=== PATIENT | female | born 2000 | race Caucasian/White ===

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

== ENCOUNTER 2025-06-12 01:35 | Emergency (ER) | payer BC, OTHER ==
--- NOTE | 2025-06-12 02:02 | ED ---
Extremity Problem HPI - General Source: patient, RN notes reviewed Mode of arrival: wheelchair Limitations: no limitations - History of Present Illness MD Complaint: extremity pain <Arin Wright - Last Filed: 06/12/25 05:05> <Nicolás Abebe - Last Filed: 06/12/25 09:58> - General Chief complaint: Extremity Problem,Nontraumatic Stated complaint: leg pain Time Seen by Provider: 06/12/25 01:45 - History of Present Illness Initial comments: This is a 25-year-old female who presents to the emergency department for right leg pain. Patient states that for the last 1 to 2 days she has had pain that seems to start in her right lower back and hip area and go down into the thigh. Pain does not travel past the knee into the calf. It is more so on the outside and top of the thigh. States that it feels achy and heavy. Reports a history of blood clots in the left leg. When she was in 2019 she developed pain and swelling to the left lower extremity and was diagnosed with a DVT. 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 Over the last couple of years she has had 5 stents put in the left leg. She is on Eliquis daily. She is concerned that she could be developing clots in the right leg as well. Denies any history of clots or problems in that leg. Denies any chest pain or shortness of breath. (Arin Wright) - Related Data Home Medications Medication Instructions Recorded Confirmed valACYclovir HCL [Valacyclovir] 1,000 mg PO DAILY 01/10/19 08/05/19 Enoxaparin [Lovenox] 100 mg SQ BID 08/05/19 08/05/19 Allergies Allergy/AdvReac Type Severity Reaction Status Date / Time No Known Allergies Allergy Verified 08/05/19 06:31 Review of Systems ROS Other: All systems not noted in ROS Statement are negative. <Arin Wright - Last Filed: 06/12/25 05:05> ROS Other: All systems not noted in ROS Statement are negative. <Nicolás Abebe - Last Filed: 06/12/25 09:58> ROS Statement: Those systems with pertinent positive or pertinent negative responses have been documented in the HPI. Past Medical History Past Medical History: Blood Disorder, Deep Vein Thrombosis (DVT) Additional Past Medical History / Comment(s): herpes simplex infection, extensive L DVT comanaged with [facility] History of Any Multi-Drug Resistant Organisms: None Reported Past Surgical History: No Surgical Hx Reported Additional Past Surgical History / Comment(s): left leg stent placements ( multiple) Past Anesthesia/Blood Transfusion Reactions: No Reported Reaction Past Psychological History: No Psychological Hx Reported Smoking Status: Never smoker Past Alcohol Use History: Occasional Past Drug Use History: None Reported - Past Family History family Additional Family Medical History / Comment(s): Denies family history of blood clots. <Arin Wright - Last Filed: 06/12/25 05:05> General Exam Limitations: no limitations General appearance: alert, in no apparent distress Head exam: Present: atraumatic, normocephalic, normal inspection Respiratory exam: Present: normal lung sounds bilaterally. Absent: respiratory distress, wheezes, rales, rhonchi, stridor Cardiovascular Exam: Present: regular rate, normal rhythm Extremities exam: Present: other (Tenderness to palpation over the right thigh. No swelling or erythema. No calf tenderness. 2+ DP and PT pulses.) Neurological exam: Present: alert, oriented X3, CN II-XII intact Psychiatric exam: Present: normal affect, normal mood Skin exam: Present: warm, dry, intact, normal color. Absent: rash <Arin Wright - Last Filed: 06/12/25 05:05> Course Vital Signs 06/12/25 06/12/25 06/12/25 01:38 02:34 06:21 Temperature 98.2 F Pulse Rate 85 81 85 Respiratory 16 19 17 Rate Blood Pressure 112/56 102/61 98/62 O2 Sat by Pulse 98 98 97 Oximetry Medical Decision Making - Lab Data Result diagrams: 06/12/25 02:16 06/12/25 02:16 - Radiology Data Radiology results: report reviewed, image reviewed <Arin Wright - Last Filed: 06/12/25 05:05> - Lab Data Result diagrams: 06/12/25 02:16 06/12/25 02:16 <Nicolás Abebe - Last Filed: 06/12/25 09:58> - Medical Decision Making This is a 25-year-old female who presents to the emergency department for right leg pain. Was pt. sent in by a medical professional or institution? @ -No Did you speak to anyone other than the patient for history? @ -None Did you review nursing and triage notes? @ -Yes, and I agree, it is accurate with regards to the patient's symptoms. Were old charts reviewed? @ -No Differential Diagnosis? @ -Differential Musculoskeletal Muscular strain, contusion, ligament sprain, fracture, arthritis, septic arthritis, bursitis, cellulitis, muscle spasm, nerve compression, DVT, arterial occlusion, herpes zoster, electrolyte abnormality, tumor.... This is not meant to be in all inclusive list EKG interpreted by me (3pts min.)? @ -Not obtained X-rays interpreted by me (1pt min.)? @ -X-ray of the lumbar spine obtained. My interpretation identifies no acute fractures. CT interpreted by me (1pt min.)? @ -Not obtained U/S interpreted by me (1pt. min.)? @ -Pending What testing was considered but not performed? (CT, X-rays, U/S, labs)? Why? @ -None What meds were considered but not given? Why? @ -None Did you discuss the management of the patient with other professionals? @ -No Did you reconcile home meds? @ -No Was smoking cessation discussed for >3mins.? @ -No Was critical care preformed (if so, how long)? @ -No Were there social determinants of health that impacted care today? How? (Homelessness, low income, unemployed, alcoholism, drug addiction, transporta tion, low edu. Level, literacy, decrease access to med. care, skilled nursing, rehab)? @ -No Was there de-escalation of care discussed even if they declined? (Discuss DNR or withdrawal of care, Hospice)? @ -No What co-morbidities impacted this encounter? (DM, HTN, Smoking, COPD, CAD, Cancer, CVA, Hep., AIDS, mental health diagnosis, sleep apnea, morbid obesity)? @ -May Thurner syndrome Was patient admitted / discharged? @ -The patient presented to the emergency department overnight. Advised that ultrasound would not be available for several hours until 7 AM. I did offer the option of discharge home and returning in the morning, however patient requested to wait. In the meantime we did obtain laboratory studies including a D-dimer to see if a DVT could be ruled out. X-ray of the lumbar spine obtained as well due to the possibility of other syndromes like sciatica contributing to her current discomfort. Lab work demonstrates a D-dimer of 4.32. However, this is not necessarily unexpected given her prior history. Duplex ultrasound of the right lower extremity ordered. Case signed out to ED attending at shift completion pending ultrasound results and disposition. Undiagnosed new problem with uncertain prognosis? @ -None Drug Therapy requiring intensive monitoring for toxicity (Heparin, Nitro, Insulin, Cardizem)? @ -None Were any procedures done? @ -None (Arin Wright) 25-year-old female signed out to me pending results of ultrasound of the right lower extremity. Patient presents for right lower extremity pain and heaviness. Workup so far included laboratory studies all of which were within acceptable limits except for elevated D-dimer. Was pending venous duplex ultrasound of the right lower extremity. Lumbar spine x-rays interpreted by myself reveals no evidence of acute process or injury. DVT ultrasound is interpreted myself negative for DVT. I did discuss results with the patient. Patient has 2+ pulses in the right lower extremity and it is warm. Neurovascular intact throughout. She is having no shortness of breath or chest heaviness. No concern for PE at this time. Patient does have a history of left lower extremity stents and there was a concern for possible DVT in the right lower extremity which is not there. Patient feels comfortable being discharged at this time as am I. She was given a dose of her normal Eliquis and she states she is due to refill her prescription today and is going to go pick it up. She can resume this medication at home tonight. She was in agreement this plan. Strict return precautions discussed. Recommended she follow-up with her vascular surgeon as well as PCP. I instructed the patient to follow up with their PCP in the next 1-3 days. I explained that the patient should return to the emergency department if they experience any worsening symptoms. Strict return precautions were discussed with the patient. The patient expressed understanding of these instructions. I answered all questions that the patient had. The patient was discharged home in good condition with their prescriptions and follow up information. Diagnosis/symptom? @ -Right lower extremity pain Acute, or Chronic, or Acute on Chronic? @ -Acute Uncomplicated (without systemic symptoms) or Complicated (systemic symptoms)? @ -Uncomplicated Side effects of treatment? @ -None Exacerbation, Progression, or Severe Exacerbation] @ -No Poses a threat to life or bodily function? @ -Unlikely at this time (Nicolás Abebe) - Lab Data Lab Results 06/12/25 06/12/25 06/12/25 Range/Units 02:16 02:16 02:16 WBC 8.75 (4.50-10.00) 10*3/uL RBC 4.40 (4.10-5.20) 10*6/uL Hgb 14.0 (12.0-15.0) g/dL Hct 41.2 (37.2-46.3) % MCV 93.6 (80.0-97.0) fL MCH 31.8 (27.0-32.0) pg MCHC 34.0 (32.0-37.0) g/dL Plt Count 249 (140-440) 10*3/uL MPV 10.1 (9.5-12.2) fL Immature Gran % (Auto) 0.5 % Neutrophils % 57.1 % Lymphocytes % 29.3 % Monocytes % 9.9 % Eosinophils % 2.7 % Basophils % 0.5 % Immature Gran # 0.04 (0.00-0.04) 10*3/uL Neutrophils # 5.00 (1.80-7.70) 10*3/uL Lymphocytes # 2.56 (0.90-5.00) 10*3/uL Monocytes # 0.87 (0.20-1.00) 10*3/uL Eosinophils # 0.24 (0.04-0.35) 10*3/uL Basophils # 0.04 (0.00-0.10) 10*3/uL PT (10.0-12.5) sec INR (<1.2) APTT (22.0-30.0) sec D-Dimer (<0.60) mg/L FEU Sodium 137 (137-145) mmol/L Potassium 4.6 (3.5-5.1) mmol/L Chloride 103 (98-107) mmol/L Carbon Dioxide 25 (22-30) mmol/L Anion Gap 9 mmol/L BUN 11 (7-17) mg/dL Creatinine 0.68 (0.52-1.04) mg/dL Est GFR (CKD-EPI)AfAm >90 (>60 ml/min/1.73 sqM) Est GFR (CKD-EPI)NonAf >90 (>60 ml/min/1.73 sqM) Glucose 104 H (74-99) mg/dL Calcium 10.0 (8.4-10.2) mg/dL Magnesium 2.0 (1.6-2.3) mg/dL Total Bilirubin 0.7 (0.2-1.3) mg/dL AST 27 (14-36) U/L ALT 20 (4-34) U/L Alkaline Phosphatase 44 (38-126) U/L Total Protein 7.4 (6.3-8.2) g/dL Albumin 4.2 (3.5-5.0) g/dL HCG, Qual Not Detected 06/12/25 Range/Units 03:45 WBC (4.50-10.00) 10*3/uL RBC (4.10-5.20) 10*6/uL Hgb (12.0-15.0) g/dL Hct (37.2-46.3) % MCV (80.0-97.0) fL MCH (27.0-32.0) pg MCHC (32.0-37.0) g/dL Plt Count (140-440) 10*3/uL MPV (9.5-12.2) fL Immature Gran % (Auto) % Neutrophils % % Lymphocytes % % Monocytes % % Eosinophils % % Basophils % % Immature Gran # (0.00-0.04) 10*3/uL Neutrophils # (1.80-7.70) 10*3/uL Lymphocytes # (0.90-5.00) 10*3/uL Monocytes # (0.20-1.00) 10*3/uL Eosinophils # (0.04-0.35) 10*3/uL Basophils # (0.00-0.10) 10*3/uL PT 10.8 (10.0-12.5) sec INR 1.0 (<1.2) APTT 22.6 (22.0-30.0) sec D-Dimer 4.32 H (<0.60) mg/L FEU Sodium (137-145) mmol/L Potassium (3.5-5.1) mmol/L Chloride (98-107) mmol/L Carbon Dioxide (22-30) mmol/L Anion Gap mmol/L BUN (7-17) mg/dL Creatinine (0.52-1.04) mg/dL Est GFR (CKD-EPI)AfAm (>60 ml/min/1.73 sqM) Est GFR (CKD-EPI)NonAf (>60 ml/min/1.73 sqM) Glucose (74-99) mg/dL Calcium (8.4-10.2) mg/dL Magnesium (1.6-2.3) mg/dL Total Bilirubin (0.2-1.3) mg/dL AST (14-36) U/L ALT (4-34) U/L Alkaline Phosphatase (38-126) U/L Total Protein (6.3-8.2) g/dL Albumin (3.5-5.0) g/dL HCG, Qual Disposition <Arin Wright - Last Filed: 06/12/25 05:05> Is patient prescribed a controlled substance at d/c from ED?: No Time of Disposition: 09:51 <Nicolás Abebe - Last Filed: 06/12/25 09:58> Clinical Impression: Right leg pain Disposition: HOME SELF-CARE Condition: Good Additional Instructions: Please fill your Eliquis prescription. Return to the ER if any worsening symptoms. Follow-up with your vascular surgeon and PCP in the next 1 to 3 days. Return to the ER for any worsening symptoms. Referrals: Nonstaff,Physician [Primary Care Provider] - 1-2 days Forms: Area PCPs
[2025-06-12] MEDS: DEXAMETHASONE SOD PHOSPHATE 10 MG/ML 1 ML VIAL IVP STA (02:23)
[2025-06-12] MEDS: KETOROLAC 15 MG/ML 1 ML VIAL IVP STA (02:26)
[2025-06-12] MEDS: ORPHENADRINE 30 MG/ML 2 ML VIAL IVP STA (02:30)
[2025-06-12 02:43] LABS: Basophils # (A) 0.04 10*3/uL (0.00-0.10); Basophils % (A) 0.5 %; Eosinophils # (A) 0.24 10*3/uL (0.04-0.35); Eosinophils % (A) 2.7 %; HCT 41.2 % (37.2-46.3); HGB 14.0 g/dL (12.0-15.0); Lymphocytes # (A) 2.56 10*3/uL (0.90-5.00); Lymphocytes % (A) 29.3 %; MCH 31.8 pg (27.0-32.0); MCHC 34.0 g/dL (32.0-37.0); MCV 93.6 fL (80.0-97.0); Monocytes # (A) 0.87 10*3/uL (0.20-1.00); Monocytes % (A) 9.9 %; Neutrophils # (A) 5.00 10*3/uL (1.80-7.70); Neutrophils % (A) 57.1 %; Platelet Count 249 10*3/uL (140-440); RBC 4.40 10*6/uL (4.10-5.20); RDW 12.6 % (11.5-14.5); WBC 8.75 10*3/uL (4.50-10.00)
[2025-06-12 03:07] LABS: ALT 20 U/L (4-34); African American GFR (CKD) >90 (>60 ml/min/1.73 sqM); Albumin 4.2 g/dL (3.5-5.0); Anion Gap 9 mmol/L; Blood Urea Nitrogen 11 mg/dL (7-17); Calcium 10.0 mg/dL (8.4-10.2); Carbon Dioxide 25 mmol/L (22-30); Chloride 103 mmol/L (98-107); Glucose 104 mg/dL (74-99); Non-African American GFR(CKD) >90 (>60 ml/min/1.73 sqM); Sodium 137 mmol/L (137-145); Total Protein 7.4 g/dL (6.3-8.2)
[2025-06-12 03:22] LABS: AST 27 U/L (14-36); Alkaline Phosphatase 44 U/L (38-126); Magnesium 2.0 mg/dL (1.6-2.3); Potassium 4.6 mmol/L (3.5-5.1)
[2025-06-12 04:09] LABS: INR 1.0 (<1.2)
[2025-06-12 04:10] LABS: Partial Thromboplastin Time 22.6 sec (22.0-30.0); Prothrombin Time 10.8 sec (10.0-12.5)
--- NOTE | 2025-06-12 04:33 | XR ---
EXAM: XR Lumbosacral Spine, 2 or 3 Views CLINICAL HISTORY: ITS.REASON XR Reason: Low back pain TECHNIQUE: Frontal and lateral views of the lumbar spine and sacrum. COMPARISON: No relevant prior studies available. FINDINGS: Vertebrae: There is a mild generalized curved to the left and normal lumbar lordosis. No acute fracture. Normal alignment. Sacrum/coccyx: Unremarkable as visualized. No acute fracture. Disc spaces: No acute findings. No significant narrowing. Soft tissues: Unremarkable. IMPRESSION: No evidence of acute lumbar spine pathology. If there is continued clinical concern, a CT scan may be of benefit for further evaluation.
--- NOTE | 2025-06-12 08:08 | US ---
EXAMINATION TYPE: US venous doppler duplex LE RT DATE OF EXAM: 06/12/2025 7:47 AM COMPARISON: 2018 CLINICAL INDICATION: Female, 25 years old with history of Right leg pain, hx of DVT; Right leg pain. Hx of DVT. Patient is on eliquis. TECHNIQUE: The lower extremity deep venous system is examined utilizing real time linear array sonog simón with graded compression, doppler sonography and color-flow sonography. Grayscale, color doppler , spectral doppler imaging performed of the deep veins of the lower extremities FINDINGS: SIDE PERFORMED: Right VESSELS IMAGED: Common Femoral Vein Deep Femoral Vein Greater Saphenous Vein * Femoral Vein Popliteal Vein Small Saphenous Vein * Proximal Calf Veins (* superficial vessels) Right Leg: No evidence of DVT. Appropriate venous spectral waveforms Patient states she has stent in the LEFT groin in her vein due to May-Thurner Syndrome - visualized a s hyperechoic area along vessel wall. IMPRESSION: No evidence for deep vein thrombosis. [facility], , 06/12/2025 8:06 AM
[2025-06-12] MEDS: APIXABAN 5 MG TAB PO STA (09:55)
[2025-06-12 09:58] VITALS: BP 107/69; PULSE 83; RESP 18; TEMP 98.1
== END 2025-06-12 10:00 | disposition home or self-care (01) ==
LOC: EC 01:35
DX: M79.604 Pain in right leg (principal); Z86.718 Personal history of other venous thrombosis and embolism
CPT/HCPCS: 36415; 85379; 80053; 83735; 85025; 85610; 85730; 84703; 72100; 93971; 99284; 96374; 96375 ×2; J1100; J2360; J1885

== ENCOUNTER 2025-06-15 15:51 | Inpatient (IN) | payer OTHER ==
[2025-06-15] MEDS: HYDROmorphone 1 MG/ML 1 ML SYRINGE IVP STA ×2 (16:41→18:06)
--- NOTE | 2025-06-15 16:42 | ED ---
General Adult HPI - General Chief complaint: Extremity Problem,Nontraumatic Stated complaint: Right leg pain Time Seen by Provider: 06/15/25 15:53 Source: patient Mode of arrival: wheelchair Limitations: no limitations - History of Present Illness Initial comments: Dictation was produced using [employer] dictation software. please excuse any grammatical, word or spelling errors. Chief Complaint: 25-year-old female with acute on chronic leg pain History of Present Illness: Patient 25-year-old female she has a past medical history of left lower extremity DVT status post stents. She is on anticoagulation medication presents emergency department for approximately a week and a half of right lower extremity pain. She was seen here in our facility along with at [facility] [place] the same complaint. States that DVT to the right lower extremity had been ruled out. She has been diagnosed with May-Thurner syndrome at [facility]. States that her whole leg hurts.. She states that her pain is worse whenever she tries to stand. The ROS documented in this emergency department record has been reviewed and confirmed by me. Those systems with pertinent positive or negative responses have been documented in the HPI. All other systems are other negative and/or noncontributory. - Related Data Home Medications Medication Instructions Recorded Confirmed valACYclovir HCL [Valacyclovir] 1,000 mg PO DAILY 01/10/19 08/05/19 Enoxaparin [Lovenox] 100 mg SQ BID 08/05/19 08/05/19 Allergies Allergy/AdvReac Type Severity Reaction Status Date / Time No Known Allergies Allergy Verified 08/05/19 06:31 Review of Systems ROS Statement: Those systems with pertinent positive or pertinent negative responses have been documented in the HPI. ROS Other: All systems not noted in ROS Statement are negative. Past Medical History Past Medical History: Blood Disorder, Deep Vein Thrombosis (DVT) Additional Past Medical History / Comment(s): herpes simplex infection, extensive L DVT comanaged with [facility] History of Any Multi-Drug Resistant Organisms: None Reported Past Surgical History: No Surgical Hx Reported Additional Past Surgical History / Comment(s): left leg stent placements ( multiple) Past Anesthesia/Blood Transfusion Reactions: No Reported Reaction Past Psychological History: No Psychological Hx Reported Smoking Status: Never smoker Past Alcohol Use History: Occasional Past Drug Use History: None Reported - Past Family History family Additional Family Medical History / Comment(s): Denies family history of blood clots. General Exam - General Exam Comments Initial Comments: PHYSICAL EXAM: General Impression: Alert and oriented x3, acute distress secondary to pain HEENT: Normocephalic atraumatic, extra-ocular movements intact, pupils equal and reactive to light bilaterally, mucous membranes moist. Cardiovascular: Heart regular rate and rhythm Chest: Able to complete full sentences, no retractions, no tachypnea Abdomen: abdomen soft, non-tender, non-distended, no organomegaly Musculoskeletal: Pulses present and equal in all extremities, no peripheral edema Motor: no focal deficits noted Neurological: CN II-XII grossly intact, no focal motor or sensory deficits noted Skin: Intact with no visualized rashes Psych: Normal affect and mood Right lower extremity: Increased bulk to the right leg compared to the left, diffuse palpatory tenderness circumferentially from the groin all the way down to the foot. Strong DP and PT pulse. No skin changes. Soft compartments Limitations: no limitations Course Vital Signs 06/15/25 06/15/25 15:58 16:39 Temperature 99.3 F Pulse Rate 108 H 103 H Respiratory 20 16 Rate Blood Pressure 132/66 100/73 O2 Sat by Pulse 94 L 97 Oximetry Medical Decision Making - Medical Decision Making Was pt. sent in by a medical professional or institution (CASEY Rooney, RADIOISOTOPE TECHNICIAN, urgent care, hospital, or usp...) When possible be specific @ -No Did you speak to anyone other than the patient for history (EMS, parent, family, police, friend...)? What history was obtained from this source @ -No Did you review nursing and triage notes (agree or disagree)? Why? @ -I reviewed and agree with nursing and triage notes Were old charts reviewed (outside hosp., previous admission, EMS record, old EKG, old radiological studies, urgent care reports/EKG's, usp records)? Report findings @ -No old charts were reviewed Differential Diagnosis (chest pain, altered mental status, abdominal pain women, abdominal pain men, vaginal bleeding, musculoskeletal, weakness, fever, dyspnea, syncope, headache, dizziness, GI bleed, back pain, seizure, CVA, palpatations, mental health)? @ -Compartment syndrome, DVT, ischemic limb EKG interpreted by me (3pts min.). @ -None done X-rays interpreted by me (1pt min.). @ -None done CT interpreted by me (1pt min.). @ -None done U/S interpreted by me (1pt. min.). @ -None done What testing was considered but not performed or refused? (CT, X-rays, U/S, labs)? Why? @ -None What meds were considered but not given or refused? Why? @ -None Was smoking cessation discussed for >3mins.? @ -No Were there social determinants of health that impacted care today? How? (Homelessness, low income, unemployed, alcoholism, drug addiction, transportation, low edu. Level, literacy, decrease access to med. care, nursing home, rehab)? @ -No Was there de-escalation of care discussed even if they declined (Discuss DNR or withdrawal of care, Hospice)? DNR status @ -No What co-morbidities impacted this encounter? (DM, HTN, Smoking, COPD, CAD, Cancer, CVA, ARF, Chemo, Hep., AIDS, mental health diagnosis, sleep apnea, morbid obesity)? @ -None Was patient admitted / discharged? Hospital course, mention meds given and route, prescriptions, significant lab abnormalities, going to OR and other pertinent info. @ -25-year-old female history of May Trammell syndrome and left lower extremity DVT since to the ER with severe right lower extremity pain. Vital signs stable. Patient no distress. Patient has good pulses soft compartments. Labs unremarkable. Patient in significant distress despite analgesic administration. Will be admitted for intractable pain consultation to vascular and Ortho Did you discuss the management of the patient with other professionals (faraz bell i.e. , PA, RADIOISOTOPE TECHNICIAN, lab, RT, psych nurse, social sciences department chair, atm servicer, teacher, ship's officer, case making machine operator)? Give summary @ -No Was critical care preformed (if so, how long)? @ -No Undiagnosed new problem with uncertain prognosis? @ -No Drug Therapy requiring intensive monitoring for toxicity (Heparin, Nitro, Insulin, Cardizem)? @ -No Were any procedures done? @ -No Diagnosis/symptom? Acute, or Chronic, or Acute on Chronic? Uncomplicated (without systemic symptoms) or Complicated (systemic symptoms)? @ -Intractable leg pain Side effects of treatment? @ -No Exacerbation, Progression, or Severe Exacerbation? @ -No Poses a threat to life or bodily function? How? (Chest pain, [place], [place], pneumonia, PE, COPD, DKA, ARF, appy, cholecystitis, CVA, Diverticulitis, Homicidal, Suicidal, threat to staff... and all critical care pts) @ -yes - Lab Data Result diagrams: 06/15/25 16:37 06/15/25 16:37 Lab Results 06/15/25 06/15/25 06/15/25 Range/Units 16:37 16:37 17:16 WBC 10.15 H (4.50-10.00) 10*3/uL RBC 4.04 L (4.10-5.20) 10*6/uL Hgb 13.1 (12.0-15.0) g/dL Hct 38.1 (37.2-46.3) % MCV 94.3 (80.0-97.0) fL MCH 32.4 H (27.0-32.0) pg MCHC 34.4 (32.0-37.0) g/dL Plt Count 285 (140-440) 10*3/uL MPV 9.3 L (9.5-12.2) fL Immature Gran % (Auto) 0.5 % Neutrophils % 70.0 % Lymphocytes % 19.2 % Monocytes % 8.1 % Eosinophils % 1.8 % Basophils % 0.4 % Immature Gran # 0.05 H (0.00-0.04) 10*3/uL Neutrophils # 7.11 (1.80-7.70) 10*3/uL Lymphocytes # 1.95 (0.90-5.00) 10*3/uL Monocytes # 0.82 (0.20-1.00) 10*3/uL Eosinophils # 0.18 (0.04-0.35) 10*3/uL Basophils # 0.04 (0.00-0.10) 10*3/uL Sodium 137 (137-145) mmol/L Potassium 3.9 (3.5-5.1) mmol/L Chloride 103 (98-107) mmol/L Carbon Dioxide 23 (22-30) mmol/L Anion Gap 11 mmol/L BUN 11 (7-17) mg/dL Creatinine 0.57 (0.52-1.04) mg/dL Est GFR (CKD-EPI)AfAm >90 (>60 ml/min/1.73 sqM) Est GFR (CKD-EPI)NonAf >90 (>60 ml/min/1.73 sqM) Glucose 124 H (74-99) mg/dL Plasma Lactic Acid Umesh 0.6 L (0.7-2.0) mmol/L Calcium 9.5 (8.4-10.2) mg/dL HCG, Quant <2.4 mIU/mL Disposition Clinical Impression: Intractable pain Disposition: ADMITTED IP TO THIS HOSP Condition: Fair Referrals: None,Stated [Primary Care Provider] - 1-2 days Decision Time: 18:08
[2025-06-15 16:44] LABS: Basophils # (A) 0.04 10*3/uL (0.00-0.10); Basophils % (A) 0.4 %; Eosinophils # (A) 0.18 10*3/uL (0.04-0.35); Eosinophils % (A) 1.8 %; HCT 38.1 % (37.2-46.3); HGB 13.1 g/dL (12.0-15.0); Lymphocytes # (A) 1.95 10*3/uL (0.90-5.00); Lymphocytes % (A) 19.2 %; MCH 32.4 pg (27.0-32.0); MCHC 34.4 g/dL (32.0-37.0); MCV 94.3 fL (80.0-97.0); Monocytes # (A) 0.82 10*3/uL (0.20-1.00); Monocytes % (A) 8.1 %; Neutrophils # (A) 7.11 10*3/uL (1.80-7.70); Neutrophils % (A) 70.0 %; Platelet Count 285 10*3/uL (140-440); RBC 4.04 10*6/uL (4.10-5.20); RDW 12.2 % (11.5-14.5); WBC 10.15 10*3/uL (4.50-10.00)
[2025-06-15 17:00] LABS: African American GFR (CKD) >90 (>60 ml/min/1.73 sqM); Anion Gap 11 mmol/L; Blood Urea Nitrogen 11 mg/dL (7-17); Calcium 9.5 mg/dL (8.4-10.2); Carbon Dioxide 23 mmol/L (22-30); Chloride 103 mmol/L (98-107); Glucose 124 mg/dL (74-99); Non-African American GFR(CKD) >90 (>60 ml/min/1.73 sqM); Potassium 3.9 mmol/L (3.5-5.1); Sodium 137 mmol/L (137-145)
[2025-06-15 17:16] LABS: HCG,Quantitative Serum <2.4 mIU/mL
[2025-06-15] MEDS ORDERED: ONDANSETRON 4 MG/2 ML VIAL IVP PRN (18:05)
[2025-06-15] MEDS ORDERED: NALOXONE 0.4 MG/ML 1 ML VIAL IV PRN (18:05)
[2025-06-15] MEDS: SODIUM CHLORIDE 0.9% 1,000 ML IV SCH (18:13)
[2025-06-15] MEDS: HYDROmorphone 0.5 MG/0.5 ML SYRINGE IVP PRN (20:35)
[2025-06-15] MEDS: ACETAMINOPHEN TAB 325 MG TAB PO PRN (20:56)
[2025-06-16] MEDS: APIXABAN 5 MG TAB PO SCH (09:12)
--- NOTE | 2025-06-16 10:52 | P.GSCN ---
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 Patient states prior to coming into the hospital she has been taking her medication as scheduled. She states that she started having pain in her right lower extremity last week Monday she continued to have pain and then started getting swelling she was seen in our emergency department on had a venous duplex that was negative for DVT, continued with worsening pain on Monday so she went down to the [facility] which she reports her venous duplex there also was negative and they told her it was a pinched nerve. She worked on Monday and then yesterday she got up and noticed significant swelling to the right lower extremity especially in her thigh. She came in for further evaluation. Patient is teary-eyed she states that she is having significant pain in that right lower leg. It is painful to walk. She does have full range of motion. Review of Systems A 14 point review systems was completed all pertinent positives and negatives as stated in the HPI. Past Medical History Past Medical History: Blood Disorder, Deep Vein Thrombosis (DVT) Additional Past Medical History / Comment(s): herpes simplex infection, extensive L DVT comanaged with [facility] History of Any Multi-Drug Resistant Organisms: None Reported Past Surgical History: No Surgical Hx Reported Additional Past Surgical History / Comment(s): left leg stent placements ( mu ltiple) Past Anesthesia/Blood Transfusion Reactions: No Reported Reaction Past Psychological History: No Psychological Hx Reported Smoking Status: Never smoker Past Alcohol Use History: Occasional Past Drug Use History: None Reported - Past Family History family Additional Family Medical History / Comment(s): Denies family history of blood clots. Medications and Allergies Home Medications Medication Instructions Recorded Confirmed Type Apixaban [Eliquis] 5 mg PO BID 06/15/25 06/15/25 History Allergies Allergy/AdvReac Type Severity Reaction Status Date / Time rosuvastatin [From Crestor] Allergy Rash/Hives Verified 06/15/25 19:08 Surgical - Exam Vital Signs Temp Pulse Resp BP Pulse Ox 99.3 F 108 H 20 132/66 94 L 06/15/25 15:58 06/15/25 15:58 06/15/25 15:58 06/15/25 15:58 06/15/25 15:58 General appearance: The patient is alert, oriented, appears in no acute distress. HET: Head is normocephalic and atraumatic. Pupils are equal and reactive. Neck: Supple. Heart: Regular. Lungs: Equal expansion, normal respiratory effort. Abdomen: Soft, nontender, nondistended. Extremities: Right lower extremity with significant swelling of the right thigh and calf, erythema to the calf however patient did have a heating pad. Palpable femoral pulse and DP and PT pulse. Neurological: No focal deficits. Strength and sensation are grossly intact. Results - Labs 06/15/25 16:37 06/15/25 16:37 Abnormal Lab Results - Last 24 Hours (Table) 06/15/25 06/15/25 06/15/25 Range/Units 16:37 16:37 17:16 WBC 10.15 H (4.50-10.00) 10*3/uL RBC 4.04 L (4.10-5.20) 10*6/uL MCH 32.4 H (27.0-32.0) pg MPV 9.3 L (9.5-12.2) fL Immature Gran # 0.05 H (0.00-0.04) 10*3/uL Glucose 124 H (74-99) mg/dL Plasma Lactic Acid Umesh 0.6 L (0.7-2.0) mmol/L Diabetes panel 06/15/25 Range/Units 16:37 Sodium 137 (137-145) mmol/L Potassium 3.9 (3.5-5.1) mmol/L Chloride 103 (98-107) mmol/L Carbon Dioxide 23 (22-30) mmol/L BUN 11 (7-17) mg/dL Creatinine 0.57 (0.52-1.04) mg/dL Glucose 124 H (74-99) mg/dL Calcium 9.5 (8.4-10.2) mg/dL Calcium panel 06/15/25 Range/Units 16:37 Calcium 9.5 (8.4-10.2) mg/dL Pituitary panel 06/15/25 Range/Units 16:37 Sodium 137 (137-145) mmol/L Potassium 3.9 (3.5-5.1) mmol/L Chloride 103 (98-107) mmol/L Carbon Dioxide 23 (22-30) mmol/L BUN 11 (7-17) mg/dL Creatinine 0.57 (0.52-1.04) mg/dL Glucose 124 H (74-99) mg/dL Calcium 9.5 (8.4-10.2) mg/dL Adrenal panel 06/15/25 Range/Units 16:37 Sodium 137 (137-145) mmol/L Potassium 3.9 (3.5-5.1) mmol/L Chloride 103 (98-107) mmol/L Carbon Dioxide 23 (22-30) mmol/L BUN 11 (7-17) mg/dL Creatinine 0.57 (0.52-1.04) mg/dL Glucose 124 H (74-99) mg/dL Calcium 9.5 (8.4-10.2) mg/dL Assessment and Plan Assessment: 1. Right lower extremity pain and swelling 2. History of left lower extremity deep vein thrombosis with stents on anticoagulation 3. May Thurner syndrome Plan: 1. CT abdomen pelvis with contrast venous phase ordered stat 2. Discontinue Eliquis and transition to heparin drip 3. Pain medication as needed 4. N.p.o. after midnight 5. Tentative plan for venogram of the right lower extremity tomorrow 6. Medical management per primary medical physician 7. Elevate right lower extremity Thank you for this consultation, we will continue to follow. The impression and plan of care has been dictated as directed. Dr. Dorsey I performed a history and examination of this patient, discussed the same with the dictator. I agree with the dictator's note ,documented as a scribe. Any additional findings or plans will be noted.
[2025-06-16 11:18] LABS: Basophils # (A) 0.04 10*3/uL (0.00-0.10); Basophils % (A) 0.3 %; Eosinophils # (A) 0.13 10*3/uL (0.04-0.35); Eosinophils % (A) 1.1 %; HCT 36.2 % (37.2-46.3); HGB 12.6 g/dL (12.0-15.0); Lymphocytes # (A) 1.55 10*3/uL (0.90-5.00); Lymphocytes % (A) 13.0 %; MCH 32.4 pg (27.0-32.0); MCHC 34.8 g/dL (32.0-37.0); MCV 93.1 fL (80.0-97.0); Monocytes # (A) 1.38 10*3/uL (0.20-1.00); Monocytes % (A) 11.5 %; Neutrophils # (A) 8.79 10*3/uL (1.80-7.70); Neutrophils % (A) 73.6 %; Platelet Count 242 10*3/uL (140-440); RBC 3.89 10*6/uL (4.10-5.20); RDW 12.4 % (11.5-14.5); WBC 11.95 10*3/uL (4.50-10.00)
--- NOTE | 2025-06-16 11:20 | P.CNOR ---
History of Present Illness - [facility] Consult date: 06/16/25 Requesting physician: Silverio Forbes Consult reason: other (Right leg pain) History of present illness: Patient is a very pleasant 25-year-old female who is seen examined at the bedside for further evaluation of her right lower extremity. She has significant pain and swelling over her right thigh from the hip to the knee. She does have some swelling below her right knee extending into the foot. She has erythema with the swelling along with warmth over her right thigh. She states her symptoms started this past Monday and have continued to worsen. She presented to [facility] for further evaluation on 06/12/2025. Ultrasound Doppler states it was negative for DVT at that time. She was discharged home. She then presented to [facility] for further evaluation for her same symptoms on 06/13/2025. She was discharged home from there as well. She presented back to [facility] yesterday, 06/15/2025 due to her symptoms. She has a uncomfortable at the bedside. She is having difficulty with her mobilization. She states she has had significant history with her left lower extremity in the past. She states she has May-Thurner syndrome has had 5 vascular stents placed for her left lower extremity. These were performed at the [facility]. She was seen and examined by vascular surgery this morning. They have ordered CT imaging of the abdomen and pelvis and CT of the right lower extremity. These results are pending. She has some low back pain but states currently her right lower extremity symptoms are her most significant symptom and does not feel she needs treatment for her lumbar spine. Past Medical History Past Medical History: Blood Disorder, Deep Vein Thrombosis (DVT) Additional Past Medical History / Comment(s): herpes simplex infection, extensive L DVT comanaged with [facility] History of Any Multi-Drug Resistant Organisms: None Reported Past Surgical History: No Surgical Hx Reported Additional Past Surgical History / Comment(s): left leg stent placements ( multiple) Past Anesthesia/Blood Transfusion Reactions: No Reported Reaction Past Psychological History: No Psychological Hx Reported Smoking Status: Never smoker Past Alcohol Use History: Occasional Past Drug Use History: None Reported - Past Family History family Additional Family Medical History / Comment(s): Denies family history of blood clots. Medications and Allergies Home Medications Medication Instructions Recorded Confirmed Type Apixaban [Eliquis] 5 mg PO BID 06/15/25 06/15/25 History Allergies Allergy/AdvReac Type Severity Reaction Status Date / Time rosuvastatin [From Crestor] Allergy Rash/Hives Verified 06/15/25 19:08 Physical Examination Physical Exam: Patient is awake, alert, and oriented 3 Vital signs stable Good chest excursion with deep inspiration and expiration Patient appears significantly uncomfortable Significant swelling and erythema over the right thigh from the hip extending to the knee No palpable fluid collection over the right lower extremity Swelling below the right knee extending through the leg and through the foot Dorsiflexion and plantarflexion positive sustained on the right some pain No pain with palpation of the right calf Some pain with palpation over the right thigh Results Pertinent studies: X-rays of the lumbosacral spine taken on 06/12/2025: Overall alignment is adequate maintained; no compression fracture deformity; no significant de generative disc disease spondylolisthesis - Labs Labs: Abnormal Lab Results - Last 24 Hours (Table) 06/15/25 06/15/25 06/15/25 Range/Units 16:37 16:37 17:16 WBC 10.15 H (4.50-10.00) 10*3/uL RBC 4.04 L (4.10-5.20) 10*6/uL MCH 32.4 H (27.0-32.0) pg MPV 9.3 L (9.5-12.2) fL Immature Gran # 0.05 H (0.00-0.04) 10*3/uL Glucose 124 H (74-99) mg/dL Plasma Lactic Acid Umesh 0.6 L (0.7-2.0) mmol/L H & H 06/15/25 Range/Units 16:37 Hgb 13.1 (12.0-15.0) g/dL Hct 38.1 (37.2-46.3) % Result Diagrams: 06/16/25 10:57 06/15/25 16:37 Assessment and Plan Assessment: Assessment: Right thigh pain, swelling, and erythema Difficulty with mobility due to right lower extremity pain History of May-Thurner History of 5 vascular stents at the left lower extremity Low back pain History of DVT (1) May-Thurner syndrome Current Visit: Yes Status: Acute Code(s): I87.1 - COMPRESSION OF VEIN SNOMED Code(s): 854068127 (2) Swelling of right lower extremity Current Visit: Yes Status: Acute Code(s): M79.89 - OTHER SPECIFIED SOFT TISSUE DISORDERS SNOMED Code(s): 255286258 (3) History of DVT (deep vein thrombosis) Current Visit: Yes Status: Acute Code(s): Z86.718 - PERSONAL HISTORY OF OTHER VENOUS THROMBOSIS AND EMBOLISM SNOMED Code(s): 076736242 (4) Intractable pain Current Visit: Yes Status: Acute Code(s): R52 - PAIN, UNSPECIFIED SNOMED Code(s): 28207657 (5) Right leg pain Current Visit: No Status: Acute Code(s): M79.604 - PAIN IN RIGHT LEG SNOMED Code(s): 585889543 Plan: Plan: 1. She has significant pain and swelling over her right thigh from the hip to the knee. She does have some swelling below her right knee extending into the foot. She has erythema with the swelling along with warmth over her right thigh. She states her symptoms started this past Monday and have continued to worsen. She presented to [facility] for further evaluation on 06/12/2025. Ultrasound Doppler states it was negative for DVT at that time. She was discharged home. She then presented to [facility] for further evaluation for her same symptoms on 06/13/2025. She was discharged home from there as well. She presented back to [facility] yesterday, 06/15/2025 due to her symptoms. She has a uncomfortable at the bedside. She is having difficulty with her mobilization. She states she has had significant history with her left lower extremity in the past. She states she has May-Thurner syndrome has had 5 vascular stents placed for her left lower extremity. These were performed at the [facility]. She was seen and examined by vascular surgery this morning. They have ordered CT imaging of the abdomen and pelvis and CT of the right lower extremity. These results are pending. She does have significant pain swelling, and erythema over her right thigh without a palpable fluid collection. Given her physical exam and significant history, her symptoms appear to be more vascular in nature. There does not currently appear to be any specific treatment to be performed from an orthopedic standpoint. We will currently defer treatment and evaluation with vascular surgery and medicine as she is currently undergoing further workup and treatment. If CT imaging shows evidence of significant findings in which specific treatment orthopedics is indicated or recommended, we would consider treatment. 2. Patient will continue to be seen and examined by vascular surgery and medicine Agree with the above history, exam and plan, at this time there is concern for RLE DVT given her diffuse swelling and baseline vascular conditions this appears to the be the most likely etiology. No bony abnormalities related on associated imaging, at this time no orthopedic intervention is necessary. Joni Dudley MD Time with Patient: Greater than 30 (Including obtaining history, physical examination, reviewing of imaging, and dictation.)
[2025-06-16 11:26] LABS: INR 1.0 (<1.2); Partial Thromboplastin Time 25.3 sec (22.0-30.0); Prothrombin Time 11.5 sec (10.0-12.5)
[2025-06-16] MEDS: HEPARIN SOD,PORK IN 0.45% NACL 25,000 UNIT in 0.45% NACL 1 250ML.BAG IV SCH (12:01)
[2025-06-16] MEDS: HYDROmorphone 0.5 MG/0.5 ML SYRINGE IVP STA (14:39)
[2025-06-16] MEDS: HEPARIN SODIUM 1,000 UN/ML (10ML VL) IV PRN (18:42)
[2025-06-16] MEDS: HYDROmorphone 1 MG/ML 1 ML SYRINGE IVP PRN (18:45)
--- NOTE | 2025-06-16 22:13 | CT ---
EXAMINATION TYPE: CT abdomen pelvis w con DATE OF EXAM: 06/16/2025 10:11 AM COMPARISON: None. CLINICAL INDICATION: Female, 25 years old with history of Right lower extremity pain and swelling his tory of; PHH, right leg pain iliac thrombus TECHNIQUE: Multiple thin slice sub-millimeter images were obtained after administration of contrast. MIP reconstructed images and maximum intensity projection images were obtained. 3D reconstructed images and maximum intensity projection images were obtained. CT of the right lower extremity is performed in the arterial phase. Axial images were obtained at 2 m m thick sections CT Contrast: Contrast used:120 mL of Isovue 370 with IV Contrast, Oral contrast used: without Oral Contrast None CT DLP: 1204.8 mGycm, Automated exposure control for dose reduction was used. FINDINGS: There is a stent present on the left. No contrast is present within the left stent. Bilateral common iliac arteries within the [id number] are normal. Internal and external iliac vessels are patent. C ommon femoral arteries are patent. CTA right Lower extremity: Common femoral artery bifurcates into profunda femoris and superficial femoral artery. Superficial fe moral artery is patent to the obturator canal. Popliteal artery is patent. Anterior tibial artery and common trunk of the peroneal and posterior tibial arteries is normal. Trifurcation vessels are paten t in their proximal portions. These are visualized to the level of the ankle. Anterior and posterior tibial arteries are patent within the proximal foot. Three-D reconstructed images appear normal without focal arterial stenosis. Vessels are not identifie d by the anterior tibial and peroneal arteries on the reconstructed images are patent on the source i mages. The venous phase is less well contrast-enhanced. However, there is a suggestion of some hypodensity w ithin the right external iliac vein, example image series 2 image 506 which may be some underlying th rombus. The caliber of the right deep veins is greater than that on the left. There are scattered are as of hypodensity suggesting underlying thrombus. Short segments of hypodensity appear to be identifi ed within popliteal veins. The calf veins are not well delineated There is soft tissue swelling through the right lower extremity. The deep venous structures are witho ut contrast larger caliber than the adjacent artery. Underlying venous thrombosis cannot be dilated o n this exam. There are CT abdomen: Liver spleen pancreas adrenal glands appear normal. Gallbladder is unremarkable. Kidneys have normal contrast excretion. Abdominal aorta appears normal. The inferior vena cava has a stent present extend ing into the left iliac veins extending towards the left lower extremity. CT PELVIS: Limited imaging is performed. IUD is present within the uterus. Urinary bladder appears un remarkable. Couple of diverticuli within the sigmoid colon. Appendix is normal IMPRESSION: 1. No evidence of right lower extremity arterial vascular occlusion. 2. At least two arterial vessels are seen crossing the ankle joint. 3. Venous evaluation less optimal. However, suspected segments of right lower extremity and iliac vei n deep venous thrombosis may be present. A Red level critical message alert has been initiated for Meena Giron via the [email or web address] System on 06/16/2025 10:09 PM. This message alert has been sent to Meena aviles the preferences provided by the clinician for the receipt of Radiology Critical Findings. Message I D [id number]. [facility], Workstation: [facility], 06/16/2025 10:10 PM
--- NOTE | 2025-06-16 22:14 | CT ---
EXAMINATION TYPE: CT angio lower extremity RT DATE OF EXAM: 06/16/2025 10:11 AM COMPARISON: Ultrasound 06/12/2025 CLINICAL INDICATION: Female, 25 years old with history of Right lower extremity pain and swelling his tory of; PHH, right leg pain iliac thrombus TECHNIQUE: Multiple thin slice sub-millimeter images were obtained after administration of contrast. MIP reconstructed images and maximum intensity projection images were obtained. 3D reconstructed images and maximum intensity projection images were obtained. CT of the right lower extremity is performed in the arterial phase. Axial images were obtained at 2 m m thick sections CT Contrast: Contrast used:120 mL of Isovue 370 with IV Contrast, Oral contrast used: without Oral Contrast None CT DLP: 1204.8 mGycm, Automated exposure control for dose reduction was used. FINDINGS: There is a stent present on the left. No contrast is present within the left stent. Bilateral common iliac arteries within the [id number] are normal. Internal and external iliac vessels are patent. C ommon femoral arteries are patent. CTA right Lower extremity: Common femoral artery bifurcates into profunda femoris and superficial femoral artery. Superficial fe moral artery is patent to the obturator canal. Popliteal artery is patent. Anterior tibial artery and common trunk of the peroneal and posterior tibial arteries is normal. Trifurcation vessels are paten t in their proximal portions. These are visualized to the level of the ankle. Anterior and posterior tibial arteries are patent within the proximal foot. Three-D reconstructed images appear normal without focal arterial stenosis. Vessels are not identifie d by the anterior tibial and peroneal arteries on the reconstructed images are patent on the source i mages. The venous phase is less well contrast-enhanced. However, there is a suggestion of some hypodensity w ithin the right external iliac vein, example image series 2 image 506 which may be some underlying th rombus. The caliber of the right deep veins is greater than that on the left. There are scattered are as of hypodensity suggesting underlying thrombus. Short segments of hypodensity appear to be identifi ed within popliteal veins. The calf veins are not well delineated There is soft tissue swelling through the right lower extremity. The deep venous structures are witho ut contrast larger caliber than the adjacent artery. Underlying venous thrombosis cannot be dilated o n this exam. There are CT abdomen: Liver spleen pancreas adrenal glands appear normal. Gallbladder is unremarkable. Kidneys have normal contrast excretion. Abdominal aorta appears normal. The inferior vena cava has a stent present extend ing into the left iliac veins extending towards the left lower extremity. CT PELVIS: Limited imaging is performed. IUD is present within the uterus. Urinary bladder appears un remarkable. Couple of diverticuli within the sigmoid colon. Appendix is normal IMPRESSION: 1. No evidence of right lower extremity arterial vascular occlusion. 2. At least two arterial vessels are seen crossing the ankle joint. 3. Venous evaluation less optimal. However, suspected segments of right lower extremity and iliac vei n deep venous thrombosis may be present. A Red level critical message alert has been initiated for Meena Giron via the [employer] System on 06/16/2025 10:09 PM. This message alert has been sent to Meena aviles the preferences provided by the clinician for the receipt of Radiology Critical Findings. Message I D [id number]. [facility], Workstation: [facility], 06/16/2025 10:11 PM
--- NOTE | 2025-06-17 03:54 | HP ---
HISTORY AND PHYSICAL HISTORY OF PRESENT ILLNESS: A 25-year-old female, history of left extremity DVT, status post stents and anticoagulation. She came with right lower extremity pain, seen in facility, D and C, similar complaint, DVT was ruled out, has May-Thurner syndrome, [facility], whole leg hurts. Her swelling is increased and she has been admitted. Vascular consult is pending. HOME MEDICATIONS: 1. Valacyclovir 1000 daily. 2. Lovenox 100 b.i.d. subcu. ALLERGIES: Negative. REVIEW OF SYSTEMS: A 14-point review of systems otherwise is negative. PAST MEDICAL HISTORY: Blood disorder, DVT, herpes simplex infection, status left DVT. PAST SURGICAL HISTORY: Left leg stent placement. FAMILY HISTORY: Negative. PHYSICAL EXAMINATION: VITAL SIGNS: Pulse 103-108, temperature 99.3, respiratory rate 18-20, blood pressure 100-132/60s 70s, O2 94%-97%. GENERAL: Alert and oriented x3. HEENT: Normocephalic, atraumatic. CARDIOVASCULAR: S1, S2. LUNGS: Clear. GI: Soft. MUSCULOSKELETAL: Range of motion full. NEUROLOGIC: Cranial nerves intact. PSYCH: Fair mood and affect. ASSESSMENT AND PLAN: Right lower extremity has increased DVT. Leukocytosis of unclear etiology. Retractable pain. Prognosis is guarded. Please see further orders. MMODL / IJN: [id number] /
[2025-06-17] MEDS: LIDOCAINE 1% INJ 10MG/ML (30 ML VIAL-PF) SQ ONE (08:01)
[2025-06-17] MEDS: MIDAZOLAM 2 MG/2 ML VIAL IVP ONE ×2 (08:02→08:05)
[2025-06-17] MEDS: HYDROmorphone 1 MG/ML 1 ML SYRINGE IVP ONE (08:15)
[2025-06-17] MEDS: fentaNYL (PF) 50 MCG/1 ML VIAL IVP ONE (08:15)
[2025-06-17] MEDS: IOPAMIDOL-300 100ML BTL INJ ONE (08:15)
--- NOTE | 2025-06-17 08:30 | P.OP ---
Date of Procedure: 06/17/25 Preoperative Diagnosis: Acute severe extensive right lower extremity DVT Postoperative Diagnosis: Acute severe extensive right lower extremity DVT extending from the IVC to tibial veins Procedure(s) Performed: Ultrasound-guided right popliteal vein access Selective right lower extremity venogram with inferior vena cava venogram Placement of thrombolytic catheter Initiation of thrombolysis Conscious sedation x 19 minutes Anesthesia: local Surgeon: Demar Dorsey Estimated Blood Loss (ml): 5 Pathology: none sent Condition: stable Disposition: ICU Indications for Procedure: 25-year-old female with history of May Thurner and left iliac stenting presented to the hospital secondary to worsening swelling in the right lower extremity. She has been seen at multiple hospitals and ultrasounds of the lower extremity have been negative for DVT. We obtained a CT scan yesterday which demonstrated possible thrombus extending into the iliac vein. She presents today for selective right lower extremity angiogram and possible thrombolysis versus thrombectomy. Operative Findings: Extensive thrombus extending from the popliteal vein to the iliac and IVC. Left iliofemoral stenting noted extending into the IVC Description of Procedure: After written and informed consent was obtained for the patient and all risk, benefits and complications were described the patient was brought to the [facility] and laid in a prone position. The area of the posterior right leg was prepped and draped in usual sterile fashion. Timeout was performed in normal fashion with all parties in agreement. Local anesthetic was infused overlying the popliteal vein. Under ultrasound guidance the vein was accessed and a 6 Hebrew sheath was placed utilizing Seldinger technique. Venogram was then obtained through the sheath demonstrating severe thrombus within the popliteal vein extending into the femoral vein. There was no collaterals noted. 035 Glidewire was then placed and directed across the lesion into the inferior vena cava and selective venogram was obtained of the IVC demonstrating thrombus within the IVC at the area of the existing stent from the left. Due to the stent encroaching into the IVC we will place a thrombolytic catheter and perform thrombolysis. A 50 cm catheter was then placed across the lesion from the popliteal into the IVC in normal fashion. Thrombolytics were then infused and thrombolysis initiated. Patient was in severe pain due to the swelling and thrombus and we will continue to treat and monitor her with IV and p.o. narcotics. Patient was then sent to ICU for recovery.
[2025-06-17 08:59] LABS: Glucose,Whole Blood 106 mg/dL (70-110)
--- NOTE | 2025-06-17 09:04 | IR ---
EXAMINATION TYPE: IR venogram lower ext RT DATE OF EXAM: 06/17/2025 FLUOROSCOPY IR venogram lower ext RT 253 images are submitted. Total DAP: 37.2 Gycm2 Total fluoroscopy time: 2.3 minutes. [facility], Workstation: [email or web address], 06/17/2025 9:02 AM
[2025-06-17] MEDS: HYDROcodone/APAP 7.5-325MG 1 EACH TAB PO PRN (09:05)
[2025-06-17] MEDS: ALTEPLASE 10 MG in SODIUM CHLORIDE 0.9% 90 ML IA ONE (09:06)
[2025-06-17] MEDS ORDERED: Potassium Replacement Protocol 1 EACH MISC MISCELLANE PRN (09:12)
[2025-06-17] MEDS ORDERED: Magnesium Replacement Protocol 1 EACH MISC MISCELLANE PRN (09:12)
[2025-06-17 10:25] LABS: Basophils # (A) 0.05 X 10*3/uL (0.00-0.10); Basophils % (A) 0.4 %; Eosinophils # (A) 0.17 X 10*3/uL (0.04-0.35); Eosinophils % (A) 1.4 %; HCT 38.7 % (37.2-46.3); HGB 12.7 g/dL (12.0-15.0); Immature Grans, Automated 0.70 %; Lymphocytes # (A) 1.92 X 10*3/uL (0.90-5.00); Lymphocytes % (A) 15.7 %; MCH 30.8 pg (27.0-32.0); MCHC 32.8 g/dL (32.0-37.0); MCV 93.7 FL (80.0-97.0); Monocytes # (A) 1.50 X 10*3/uL (0.20-1.00); Monocytes % (A) 12.3 %; NRBC Per 100 WBC 0 X 10*3/uL (0.00-0.01); Neutrophils # (A) 8.48 X 10*3/uL (1.80-7.70); Neutrophils % (A) 69.5 %; Platelet Count 271 X 10*3/uL (140-440); RBC 4.13 X 10*6/uL (4.10-5.20); RDW 12.4 % (11.5-14.5); WBC 12.21 X 10*3/uL (4.50-10.00)
[2025-06-17] MEDS ORDERED: NALOXONE 0.4 MG/ML 1 ML VIAL IV PRN (11:01)
--- NOTE | 2025-06-17 11:10 | P.PN ---
Progress Note - Text Progress Note Date: 06/17/25 Patient is currently in the ICU. She is currently with tPA infusion. Was called regarding patient's pain not being controlled. Patient was seen and evaluated. She states her pain is mostly in her right thigh. She states her pain is the same as when she came in and no change however is not getting good relief with current pain medication. Nursing also is reporting that patient is refusing any lab draws at this time. She currently has heparin and tPA infusing. Initially Morning View 7.5 mg p.o. every 6 hours was added to Dilaudid 1 mg every 4 hours IV push post procedure. Patient was discussed with Dr. Dorsey She is scheduled for a venogram tPA recheck later today. Discussed with patient and nursing to also use alternative measures such as warm packs and cooling packs for patient's pain along with deep breathing and relaxation strategies. Dilaudid CARE AIDE pump ordered for pain management. Patient is also now agreeable to allowing blood draws and a second IV start. Discussed importance of blood draws and monitoring for bleeding times with patient. She seemingly understands and v erbalized she will allow blood draws as ordered. The impression and plan of care has been dictated as directed. Dr. Dorsey I performed a history and examination of this patient, discussed the same with the dictator. I agree with the dictator's note ,documented as a scribe. Any additional findings or plans will be noted.
[2025-06-17 11:59] LABS: Basophils # (A) 0.04 10*3/uL (0.00-0.10); Basophils % (A) 0.2 %; Eosinophils # (A) 0.05 10*3/uL (0.04-0.35); Eosinophils % (A) 0.3 %; HCT 39.9 % (37.2-46.3); HGB 13.8 g/dL (12.0-15.0); Lymphocytes # (A) 1.01 10*3/uL (0.90-5.00); Lymphocytes % (A) 6.0 %; MCH 32.6 pg (27.0-32.0); MCHC 34.6 g/dL (32.0-37.0); MCV 94.3 fL (80.0-97.0); Monocytes # (A) 1.54 10*3/uL (0.20-1.00); Monocytes % (A) 9.1 %; Neutrophils # (A) 14.17 10*3/uL (1.80-7.70); Neutrophils % (A) 83.5 %; Platelet Count 275 10*3/uL (140-440); RBC 4.23 10*6/uL (4.10-5.20); RDW 12.2 % (11.5-14.5); WBC 16.96 10*3/uL (4.50-10.00)
[2025-06-17 12:16] LABS: Fibrinogen 701.0 mg/dL (200-500); Partial Thromboplastin Time 27.7 sec (22.0-30.0)
[2025-06-17] MEDS: HYDROmorphone PCA 10 MG/50 ML BAG IV PRN (12:37)
[2025-06-17 19:27] LABS: Basophils # (A) 0.02 10*3/uL (0.00-0.10); Basophils % (A) 0.2 %; Eosinophils # (A) 0.05 10*3/uL (0.04-0.35); Eosinophils % (A) 0.4 %; HCT 36.4 % (37.2-46.3); HGB 12.3 g/dL (12.0-15.0); Lymphocytes # (A) 1.94 10*3/uL (0.90-5.00); Lymphocytes % (A) 14.8 %; MCH 31.4 pg (27.0-32.0); MCHC 33.8 g/dL (32.0-37.0); MCV 92.9 fL (80.0-97.0); Monocytes # (A) 1.58 10*3/uL (0.20-1.00); Monocytes % (A) 12.1 %; Neutrophils # (A) 9.38 10*3/uL (1.80-7.70); Neutrophils % (A) 71.5 %; Platelet Count 223 10*3/uL (140-440); RBC 3.92 10*6/uL (4.10-5.20); RDW 12.3 % (11.5-14.5); WBC 13.10 10*3/uL (4.50-10.00)
[2025-06-17 20:09] LABS: Fibrinogen 559.0 mg/dL (200-500); Partial Thromboplastin Time 99.4 sec (22.0-30.0)
[2025-06-17] MEDS: ALTEPLASE 10 MG in SODIUM CHLORIDE 0.9% 90 ML IV ONE (22:20)
[2025-06-18 00:41] LABS: Basophils # (A) 0.07 10*3/uL (0.00-0.10); Basophils % (A) 0.6 %; Eosinophils # (A) 0.12 10*3/uL (0.04-0.35); Eosinophils % (A) 1.0 %; HCT 36.1 % (37.2-46.3); HGB 12.3 g/dL (12.0-15.0); Lymphocytes # (A) 2.27 10*3/uL (0.90-5.00); Lymphocytes % (A) 18.6 %; MCH 32.1 pg (27.0-32.0); MCHC 34.1 g/dL (32.0-37.0); MCV 94.3 fL (80.0-97.0); Monocytes # (A) 1.52 10*3/uL (0.20-1.00); Monocytes % (A) 12.5 %; Neutrophils # (A) 8.04 10*3/uL (1.80-7.70); Neutrophils % (A) 65.9 %; Platelet Count 198 10*3/uL (140-440); RBC 3.83 10*6/uL (4.10-5.20); RDW 12.3 % (11.5-14.5); WBC 12.19 10*3/uL (4.50-10.00)
[2025-06-18 01:52] LABS: Fibrinogen 527.0 mg/dL (200-500); Partial Thromboplastin Time 52.9 sec (22.0-30.0)
[2025-06-18 07:02] LABS: Basophils # (A) 0.05 10*3/uL (0.00-0.10); Basophils % (A) 0.5 %; Eosinophils # (A) 0.14 10*3/uL (0.04-0.35); Eosinophils % (A) 1.5 %; HCT 35.6 % (37.2-46.3); HGB 12.0 g/dL (12.0-15.0); Lymphocytes # (A) 1.76 10*3/uL (0.90-5.00); Lymphocytes % (A) 18.7 %; MCH 31.7 pg (27.0-32.0); MCHC 33.7 g/dL (32.0-37.0); MCV 94.2 fL (80.0-97.0); Monocytes # (A) 1.21 10*3/uL (0.20-1.00); Monocytes % (A) 12.8 %; Neutrophils # (A) 6.11 10*3/uL (1.80-7.70); Neutrophils % (A) 64.8 %; Platelet Count 174 10*3/uL (140-440); RBC 3.78 10*6/uL (4.10-5.20); RDW 12.2 % (11.5-14.5); WBC 9.43 10*3/uL (4.50-10.00)
[2025-06-18 07:11] LABS: African American GFR (CKD) >90 (>60 ml/min/1.73 sqM); Anion Gap 5 mmol/L; Blood Urea Nitrogen 6 mg/dL (7-17); Calcium 8.6 mg/dL (8.4-10.2); Carbon Dioxide 25 mmol/L (22-30); Chloride 105 mmol/L (98-107); Glucose 98 mg/dL (74-99); Non-African American GFR(CKD) >90 (>60 ml/min/1.73 sqM); Potassium 3.6 mmol/L (3.5-5.1); Sodium 135 mmol/L (137-145)
[2025-06-18] MEDS: ALTEPLASE 10 MG in SODIUM CHLORIDE 0.9% 90 ML IV ONE (08:13)
[2025-06-18 08:51] LABS: Fibrinogen 461.0 mg/dL (200-500)
[2025-06-18 08:58] LABS: Partial Thromboplastin Time 58.1 sec (22.0-30.0)
--- NOTE | 2025-06-18 10:10 | P.PN ---
Subjective Progress Note Date: 06/18/25 Principal diagnosis: Right lower extremity DVT Patient is seen and examined as a follow-up in the ICU. Yesterday she was scheduled for a repeat venogram with tPA recheck however patient refused to have the procedure done without general anesthesia so it was canceled and rescheduled for today however patient is requesting to be transferred to [facility] to her previous vascular surgeon. Patient does state pain is well- controlled now with the [employer] pump. She still has her infusion catheter in place with tPA infusing. Denies any abdominal pain, nausea or vomiting. No shortness of breath or chest pain. No signs of bleeding. Patient's nurse is currently trying to contact the primary care physician to initiate a transfer. Attending note: Patient was evaluated in the intensive care unit. She continues to refuse anything by general anesthesia. I did speak with her at length and convinced her that anesthesia/analgesia with SCIENTIFIC EDITOR present would be more fab ropriate than a general anesthetic agent. Patient was willing to proceed with this type of anesthetic care given. We will plan to do follow-up venography later this date. All questions were answered to patient's satisfaction. Objective - Vital Signs Vital signs: Vital Signs Temp 97.7 F 06/18/25 00:00 Pulse 83 06/18/25 07:00 Resp 15 06/18/25 07:00 BP 94/70 06/18/25 07:00 Pulse Ox 96 06/18/25 07:00 FiO2 Intake & Output 06/17/25 06/18/25 06/18/25 18:59 06:59 18:59 Intake Total 2518.944 7395.325 250 Output Total 550 860 Balance 5073.323 4577.325 250 Weight 106.3 kg Intake: Intake, IV Titration 594.333 787.325 50 Amount Alteplase 10 mg In Sodium 84.333 Chloride 0.9% 90 ml @ 1 MG/HR 10 mls/hr IA .Q10H [facility] Rx#:[id number] Alteplase 10 mg In Sodium 60 120 10 Chloride 0.9% 90 ml @ 1 MG/HR 10 mls/hr IV .Q10H [facility] Rx#:[id number] Heparin Sod,Pork in 0.45% 250.000 247.325 NaCl 25,000 unit In 0.45 % NaCl 1 250ml.bag @ 18 UNITS/KG/HR 17.146 mls/hr IV .[id number] [facility] Rx#: [id number] Sodium Chloride 0.9% 1, 200 420 40 000 ml @ 20 mls/hr IV . Q24H [facility] Rx#:[id number] Oral 980 1880 200 Output: Urine 550 860 Other: Voiding Method External Catheter External Catheter - Exam General appearance: The patient is alert, oriented, appears in no acute distress. HET: Head is normocephalic and atraumatic. Pupils are equal and reactive. Neck: Supple. Heart: Regular. Lungs: Equal expansion, normal respiratory effort. Abdomen: Soft, nondistended. Extremities: Normal skin color and turgor. Right lower extremity with swelling from the thigh down to her foot, Greatest in thigh some improvement from admission. Palpable PT and DP pulses. Neurological: No focal deficits. Strength and sensation are grossly intact. - Labs CBC & Chem 7: 06/18/25 11:46 06/18/25 06:55 Labs: Abnormal Lab Results - Last 24 Hours (Table) 06/17/25 06/17/25 06/17/25 Range/Units 06:07 11:10 11:10 WBC 12.21 H 16.96 H (4.50-10.00) X 10*3/uL RBC (4.10-5.20) 10*6/uL Hct (37.2-46.3) % MCH 32.6 H (27.0-32.0) pg MPV (9.5-12.2) fL Immature Gran # 0.09 H 0.15 H (0.00-0.04) X 10*3/uL Neutrophils # 8.48 H 14.17 H (1.80-7.70) X 10*3/uL Monocytes # 1.50 H 1.54 H (0.20-1.00) X 10*3/uL APTT (22.0-30.0) sec Fibrinogen 701 H (200-500) mg/dL Sodium (137-145) mmol/L BUN (7-17) mg/dL 06/17/25 06/17/25 06/18/25 Range/Units 19:09 19:09 00:27 WBC 13.10 H (4.50-10.00) X 10*3/uL RBC 3.92 L (4.10-5.20) 10*6/uL Hct 36.4 L (37.2-46.3) % MCH (27.0-32.0) pg MPV 8.9 L (9.5-12.2) fL Immature Gran # 0.13 H (0.00-0.04) X 10*3/uL Neutrophils # 9.38 H (1.80-7.70) X 10*3/uL Monocytes # 1.58 H (0.20-1.00) X 10*3/uL APTT 99.4 H 52.9 H (22.0-30.0) sec Fibrinogen 559 H 527 H (200-500) mg/dL Sodium (137-145) mmol/L BUN (7-17) mg/dL 06/18/25 06/18/25 06/18/25 Range/Units 00:28 06:55 06:55 WBC 12.19 H (4.50-10.00) X 10*3/uL RBC 3.83 L 3.78 L (4.10-5.20) 10*6/uL Hct 36.1 L 35.6 L (37.2-46.3) % MCH 32.1 H (27.0-32.0) pg MPV 9.3 L 9.2 L (9.5-12.2) fL Immature Gran # 0.17 H 0.16 H (0.00-0.04) X 10*3/uL Neutrophils # 8.04 H (1.80-7.70) X 10*3/uL Monocytes # 1.52 H 1.21 H (0.20-1.00) X 10*3/uL APTT (22.0-30.0) sec Fibrinogen (200-500) mg/dL Sodium 135 L (137-145) mmol/L BUN 6 L (7-17) mg/dL Assessment and Plan Assessment: 1. Acute severe extensive right lower extremity DVT extending from the IVC to tibial veins 2. Right lower extremity pain and swelling 3. History of left lower extremity deep vein thrombosis with stents on anticoag ulation 4. May Thurner syndrome Plan: Patient was scheduled for repeat venogram with tPA recheck yesterday however anesthesia was not available and patient is requesting general anesthetic. Patient rescheduled for today however anesthesia not available until later in and patient states she will not have procedure done without general anesthetic. Procedure would have to be postponed and patient has been requesting to be transferred to [facility] where her vascular surgeon is. tPA currently infusing. IV heparin currently infusing. Will await to see if patient request for transfer is excepted. Keep n.p.o. for now. Further recommendations forthcoming. Patient was declined transfer by [facility]. Further discussion had with patient regarding anesthesia during procedure and patient is agreeable to sedation without actually having general anesthesia. Tentatively planned for this afternoon. Thank you for this consultation, we will continue to follow. The impression and plan of care has been dictated as directed. Dr. Atwood I performed a history and examination of this patient, discussed the same with the dictator. I agree with the dictator's note ,documented as a scribe. Any additional findings or plans will be noted.
[2025-06-18 12:17] LABS: Basophils # (A) 0.07 10*3/uL (0.00-0.10); Basophils % (A) 0.7 %; Eosinophils # (A) 0.15 10*3/uL (0.04-0.35); Eosinophils % (A) 1.5 %; HCT 35.6 % (37.2-46.3); HGB 12.3 g/dL (12.0-15.0); Lymphocytes # (A) 1.91 10*3/uL (0.90-5.00); Lymphocytes % (A) 19.2 %; MCH 32.6 pg (27.0-32.0); MCHC 34.6 g/dL (32.0-37.0); MCV 94.4 fL (80.0-97.0); Monocytes # (A) 1.26 10*3/uL (0.20-1.00); Monocytes % (A) 12.7 %; Neutrophils # (A) 6.37 10*3/uL (1.80-7.70); Neutrophils % (A) 64.0 %; Platelet Count 197 10*3/uL (140-440); RBC 3.77 10*6/uL (4.10-5.20); RDW 12.2 % (11.5-14.5); WBC 9.95 10*3/uL (4.50-10.00)
[2025-06-18] MEDS ORDERED: DEXAMETHASONE SOD PHOSPHATE 4 MG/ML 1 ML VIAL ONE (15:20)
[2025-06-18] MEDS ORDERED: MIDAZOLAM 2 MG/2 ML VIAL ONE (15:20)
[2025-06-18] MEDS ORDERED: PROPOFOL 10 MG/ML 20 ML VIAL IV ONE (15:20)
[2025-06-18] MEDS ORDERED: fentaNYL (PF) 50 MCG/ML 2 ML AMP ONE (15:20)
[2025-06-18] MEDS ORDERED: ONDANSETRON 4 MG/2 ML VIAL ONE (15:20)
[2025-06-18] MEDS ORDERED: HEPARIN SODIUM,PORCINE 5,000 UNIT/ML 1 ML VIAL ONE (15:20)
[2025-06-18] MEDS ORDERED: SUCCINYLCHOLINE CHLORIDE 200 MG/10 ML VIAL IV ONE (15:20)
[2025-06-18] MEDS ORDERED: diphenhydrAMINE 50 MG/ML 1 ML VIAL ONE (15:20)
[2025-06-18] MEDS: LIDOCAINE 2% (PF) 20 MG/ML 5 ML VIAL SQ ONE (16:02)
--- NOTE | 2025-06-18 16:52 | PN ---
PROGRESS NOTE SUBJECTIVE: The patient is in ICU. She had alteplase recombinant 10 mg IV. She is on a heparin drip. She is on pain control with Dilaudid, Quail, Zofran for nausea. She is status post venogram today for large blood clot in her leg. We saw her with the venogram, apparently, she had a tPA infusion, not getting good relief with pain medication. She has been monitoring the lab draws, refusing lab draws. Heparin, tPA infusion, Quail for pain. Currently, she has a blood clot in her entire right leg. OBJECTIVE: CARDIOVASCULAR: S1, S2. LUNGS: Transmitted upper airway sounds. GI: Soft. HEMATOLOGIC: Right leg the left one with medial redness. ASSESSMENT AND PLAN: Status post venogram showing severe extensive right lower extremity DVT, and IVC of the tibial veins, placement of thrombolytic catheter. Thrombolysis was given. Prognosis is guarded. Monitor in the ICU. MMODL / IJN: [id number] /
--- NOTE | 2025-06-18 16:52 | HP ---
HISTORY AND PHYSICAL . Her upper thigh area is extremely red. She has a CTA that shows possible large blood clots in the right upper leg. HOME MEDICATIONS: Include valacyclovir 1000 mg daily, Lovenox subcu. ALLERGIES: Negative. PAST MEDICAL HISTORY: DVT, blood disorder, herpes simplex, FAMILY HISTORY: Negative. She has sleep apnea, noncompliant with CPAP. PHYSICAL EXAMINATION: VITAL SIGNS: Temperature 99.3, pulse 103 to 108, respiratory rate 18 to 20, blood pressure 100-130s/60s-70s, O2 94% to 97%. CHEST: Lungs clear. CARDIOVASCULAR: S1, S2. ENDOCRINE: BMI is over 30. VASCULAR: Right leg is 1.5 to 2 times the size of the left thigh with redness and swelling in the whole right upper thigh. There is no acute DVT of the right leg with possible lymphedema changes. IV heparin. . Prognosis guarded. Please see further orders. MMODL / IJN: [id number] /
[2025-06-18] MEDS: IOPAMIDOL-370 100ML BTL INTRATHECA ONE (17:00)
[2025-06-18] MEDS: SODIUM CHLORIDE 0.9% 1,000 ML IV ONE (17:05)
[2025-06-18 17:57] LABS: Glucose,Whole Blood 81 mg/dL (70-110)
[2025-06-18] MEDS: CLOPIDOGREL 75 MG TAB PO SCH (18:28)
[2025-06-18] MEDS: ASPIRIN 81 MG PO SCH (18:29)
--- NOTE | 2025-06-19 02:22 | PN ---
PROGRESS NOTE SUBJECTIVE: Remains on Plavix, aspirin, [place], Dilaudid for pain, potassium, magnesium replacement protocol. She is in ICU, status post cardiovascular procedure today, we removed clot from the right leg. She is feeling better in ICU, the pain is less. She has less pain. Swelling is still there, but her pain is better control since it has been removed out of the legs. OBJECTIVE: VITAL SIGNS: Pulse 104, temp 98.4, respiratory rate , blood pressure 113/66. GENERAL: She is alert, oriented. Fair mood and affect. EXTREMITIES: Legs were swollen, but less swollen, less tender in the right lower extremity. ASSESSMENT: Acute deep vein thrombosis of entire right lower leg, history of May-Thurner syndrome. PLAN: Clot was taken out. We have to figure out blood thinners over next few days and hopefully discharge her home. Remains in ICU. MMODL / IJN: [id number] /
[2025-06-19 03:50] LABS: Basophils # (A) 0.05 10*3/uL (0.00-0.10); Basophils % (A) 0.4 %; Eosinophils # (A) 0.01 10*3/uL (0.04-0.35); Eosinophils % (A) 0.1 %; HCT 35.1 % (37.2-46.3); HGB 11.9 g/dL (12.0-15.0); Lymphocytes # (A) 0.79 10*3/uL (0.90-5.00); Lymphocytes % (A) 6.4 %; MCH 31.7 pg (27.0-32.0); MCHC 33.9 g/dL (32.0-37.0); MCV 93.6 fL (80.0-97.0); Monocytes # (A) 1.17 10*3/uL (0.20-1.00); Monocytes % (A) 9.4 %; Neutrophils # (A) 10.21 10*3/uL (1.80-7.70); Neutrophils % (A) 82.0 %; Platelet Count 203 10*3/uL (140-440); RBC 3.75 10*6/uL (4.10-5.20); RDW 12.0 % (11.5-14.5); WBC 12.44 10*3/uL (4.50-10.00)
[2025-06-19 04:25] LABS: African American GFR (CKD) >90 (>60 ml/min/1.73 sqM); Anion Gap 9 mmol/L; Blood Urea Nitrogen 6 mg/dL (7-17); Calcium 9.4 mg/dL (8.4-10.2); Carbon Dioxide 25 mmol/L (22-30); Chloride 102 mmol/L (98-107); Glucose 107 mg/dL (74-99); Non-African American GFR(CKD) >90 (>60 ml/min/1.73 sqM); Potassium 4.0 mmol/L (3.5-5.1); Sodium 136 mmol/L (137-145)
--- NOTE | 2025-06-19 07:38 | IR ---
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 Total DAP: 197 Gycm2 Total fluoroscopy time: 17.5 minutes. [facility], Workstation: [email or web address] [email or web address], 06/19/2025 7:36 AM
[2025-06-19 09:05] VITALS: BMI 38.7
--- NOTE | 2025-06-19 09:16 | P.PN ---
Subjective Progress Note Date: 06/19/25 Principal diagnosis: Right lower extremity DVT Patient is seen and examined today as a follow-up. She is status post venogram with tPA recheck with improvement in clot burden and status post balloon angioplasty and stent placement. Patient states pain is improved. Swelling is improved. She still having quite a bit of pain with ambulating so it is making it difficult. She denies any shortness of breath or chest pain. She is afebrile. Vital signs have been stable. Objective - Vital Signs Vital signs: Vital Signs Temp 97.8 F 06/19/25 08:00 Pulse 91 06/19/25 08:00 Resp 19 06/19/25 08:00 BP 99/65 06/19/25 08:00 Pulse Ox 97 06/19/25 08:00 FiO2 Intake & Output 06/18/25 06/19/25 06/19/25 18:59 06:59 18:59 Intake Total 1100 1350 300 Output Total 1200 3275 0 Balance -100 -1925 300 Weight 102.3 kg Intake: IV 400 0 Alteplase 10 mg In Sodium 80 Chloride 0.9% 90 ml @ 1 MG/HR 10 mls/hr IA .Q10H [facility] Rx#:[id number] Sodium Chloride 0.9% 1, 320 0 000 ml @ 20 mls/hr IV . Q24H [facility] Rx#:[id number] Intake, IV Titration 500 300 Amount Alteplase 10 mg In Sodium 100 Chloride 0.9% 90 ml @ 1 MG/HR 10 mls/hr IA .Q10H [facility] Rx#:[id number] Alteplase 10 mg In Sodium 10 Chloride 0.9% 90 ml @ 1 MG/HR 10 mls/hr IV .Q10H [facility] Rx#:[id number] Alteplase 10 mg In Sodium 100 Chloride 0.9% 90 ml @ 1 MG/HR 10 mls/hr IV .Q10H [facility] Rx#:[id number] Heparin Sod,Pork in 0.45% 250 NaCl 25,000 unit In 0.45 % NaCl 1 250ml.bag @ 18 UNITS/KG/HR 17.146 mls/hr IV .[id number] [facility] Rx#: [id number] Sodium Chloride 0.9% 1, 40 300 000 ml @ 20 mls/hr IV . Q24H [facility] Rx#:[id number] Oral 200 1050 300 Output: Urine 1200 3275 0 Other: Voiding Method External Catheter External Catheter External Catheter # Voids 0 0 - Exam General appearance: The patient is alert, oriented, appears in no acute distress. HET: Head is normocephalic and atraumatic. Neck: Supple. Heart: Regular. Lungs: Equal expansion, normal respiratory effort. Abdomen: Soft, nondistended. Extremities: Normal skin color and turgor. Right lower extremity with swelling. Palpable DP and PT pulses. Bilateral popliteal access sites without any bleeding, no hematoma. Neurological: No focal deficits. Strength and sensation are grossly intact. - Labs CBC & Chem 7: 06/19/25 03:03 06/19/25 03:03 Labs: Abnormal Lab Results - Last 24 Hours (Table) 06/18/25 06/18/25 06/19/25 Range/Units 06:55 11:46 03:03 WBC 12.44 H (4.50-10.00) 10*3/uL RBC 3.77 L 3.75 L (4.10-5.20) 10*6/uL Hgb 11.9 L (12.0-15.0) g/dL Hct 35.6 L 35.1 L (37.2-46.3) % MCH 32.6 H (27.0-32.0) pg MPV 9.4 L (9.5-12.2) fL Immature Gran # 0.19 H 0.21 H (0.00-0.04) 10*3/uL Neutrophils # 10.21 H (1.80-7.70) 10*3/uL Lymphocytes # 0.79 L (0.90-5.00) 10*3/uL Monocytes # 1.26 H 1.17 H (0.20-1.00) 10*3/uL Eosinophils # 0.01 L (0.04-0.35) 10*3/uL APTT 58.1 H (22.0-30.0) sec Sodium (137-145) mmol/L BUN (7-17) mg/dL Glucose (74-99) mg/dL 06/19/25 Range/Units 03:03 WBC (4.50-10.00) 10*3/uL RBC (4.10-5.20) 10*6/uL Hgb (12.0-15.0) g/dL Hct (37.2-46.3) % MCH (27.0-32.0) pg MPV (9.5-12.2) fL Immature Gran # (0.00-0.04) 10*3/uL Neutrophils # (1.80-7.70) 10*3/uL Lymphocytes # (0.90-5.00) 10*3/uL Monocytes # (0.20-1.00) 10*3/uL Eosinophils # (0.04-0.35) 10*3/uL APTT (22.0-30.0) sec Sodium 136 L (137-145) mmol/L BUN 6 L (7-17) mg/dL Glucose 107 H (74-99) mg/dL Assessment and Plan Assessment: 1. Acute severe extensive right lower extremity DVT extending from the IVC to tibial veins status post tPA thrombolysis, angioplasty and stent placement 2. Right lower extremity pain and swelling 3. History of left lower extremity deep vein thrombosis with stents on an ticoagulation 4. May Thurner syndrome Plan: 1. Resume Eliquis 5 mg twice daily 2. Will discontinue Plavix 75 mg daily, continue aspirin 81 mg daily 3. Continue with elevation of right lower extremity for swelling 4. Apply thigh-high MARIUSZ hose to right lower extremity 5. Encourage ambulation 6. Patient may transfer to med-surgical unit 7. Will consult PT/OT for evaluation on ambulation, need for home equipment 8. Rest of medical management per primary medical team 9. Discharge instructions reviewed with patient and listed in discharge plan. Patient to follow-up in couple weeks with vascular surgery. Thank you for this consultation, patient is cleared from vascular surgery for discharge. We will sign off at this time. The impression and plan of care has been dictated as directed. Dr. Atwood I performed a history and examination of this patient, discussed the same with the dictator. I agree with the dictator's note ,documented as a scribe. Any additional findings or plans will be noted.
--- NOTE | 2025-06-19 09:23 | P.OP ---
Date of Procedure: 06/18/25 Preoperative Diagnosis: 1: Right iliofemoral deep venous thrombosis, currently undergoing tPA thrombolysis. 2: History of placement right iliac venous stent. 3: History of hypercoagulable syndrome. Postoperative Diagnosis: 1: Same successful thrombolysis of the right iliac venous system. 2: Right iliac venous stenosis. Procedure(s) Performed: 1: Right iliac and inferior venacavogram via pre-existing catheter. 2: Intravascular ultrasound right iliac venous system. 3: Balloon dilation right common and external iliac venous segments. 4: Stent placement right common and external iliac venous segments. 5: Ultrasound-guided cannulation right popliteal vein. 6: Post stent placement balloon dilation. Anesthesia: ADRIANAA Surgeon: Everton Atwood Estimated Blood Loss (ml): 25 Pathology: none sent Condition: stable Disposition: no change Indications for Procedure: Patient is a 25-year-old female with a longstanding history of hypercoagulable syndrome who previously had a right iliac venous stent placed at an outside institution. She presented with left iliofemoral deep venous thrombosis and was undergoing thrombolysis of the left ileal femoral segment with a tPA infusion catheter. She presents today for follow-up venography and possible intervention. Description of Procedure: Patient was brought to the cardiac catheterization suite. She was administered general endotracheal anesthesia administered by the department of anesthesiology. She was placed in the prone position. Both popliteal spaces were sterilely prepped and then draped in the usual manner. Via the existing infusion catheter a venogram of the right iliac venous system was performed. This demonstrated complete thrombolysis of the iliac system. It also suggested significant stenosis involving both the common and external iliac venous segments. The pre-existing sheath was exchanged eventually for 10 Malagasy sheath in anticipation of stent placement. Intravascular ultrasound was performed which demonstrated severe common and external iliac venous stenosis. The patient was systemically heparinized. Balloon dilation of the segments was performed with a 10 mm diameter balloon catheter. Follow-up intravascular ultrasound demonstrated improved flow characteristics however significant residual stenosis remained. It was decided the best course of action was to place a venous stent. The previously placed stent extended 3 to 4 cm into the inferior vena cava. U tilizing a guidewire and catheter in combination we were able to manipulate the catheter and guidewire combination between the previously placed stent and the caval wall. Intravascular ultrasound was then performed to assure that we were not within the stent itself and ultrasound demonstrated proper positioning of the wire. Based on the intravascular ultrasound measurements an 18 mm x 140 mm venous stent was selected and under fluoroscopic guidance was deployed assuring that the most proximal end of the stent was at the same level as the previously placed stent at the cava level. The stent extended to the distal external iliac vein. It was felt appropriate to post stent dilate both the newly placed as well as the previously placed stent. To gain access to the left iliac system ultrasound was utilized to identify the left popliteal vein. Micropuncture needle was utilized to cannulate the vein under ultrasonic guidance. Guidewire was advanced and the needle was withdrawn. An 8 Malagasy sheath was then placed within the popliteal vein. Guidewire was easily advanced from the left popliteal space into the vena cava. 14 mm diameter balloon was then advanced from both the right and left iliac venous systems and used to simultaneously dilate and a kissing balloon manner the most proximal portion of both stents. Additionally the remaining length of the right iliac stent was balloon dilated. Completion venography demonstrated free flow of contrast through both stented segments and into the vena cava. With the above findings noted both sheaths were removed and pressure was held at both puncture sites until all evidence of bleeding ceased. Patient tolerated procedure well, awoke without apparent complication and was transferred to the recovery area in satisfactory and stable condition. Total fluoroscopy time: 17.5 minutes. Total contrast volume utilized: 40 mL of Isovue-370.
[2025-06-19] MEDS: APIXABAN 5 MG TAB PO SCH (09:42)
[2025-06-20 10:43] LABS: ALT 31 U/L (8-44); AST 34 U/L (13-35); Albumin 3.2 g/dL (3.8-4.9); Albumin/Globulin Ratio 1.14 Ratio (1.60-3.17); Alkaline Phosphatase 49 U/L (41-126); Anion Gap 10.20 mmol/L (4.00-12.00); BUN/Creat Ratio 10.17 Ratio (12.00-20.00); Blood Urea Nitrogen 6.1 mg/dL (9.0-27.0); Calcium 8.8 mg/dL (8.7-10.3); Carbon Dioxide 25.8 mmol/L (21.6-31.8); Chloride 108 mmol/L (96-109); Globulin 2.8 g/dL (1.6-3.3); Glucose 91 mg/dL (70-110); Potassium 4.2 mmol/L (3.5-5.5); Sodium 144 mmol/L (135-145); Total Protein 6.0 g/dL (6.2-8.2)
[2025-06-20 15:21] LABS: HCT 36.0 % (37.2-46.3); HGB 11.6 g/dL (12.0-15.0); MCH 31.5 pg (27.0-32.0); MCHC 32.2 g/dL (32.0-37.0); MCV 97.8 FL (80.0-97.0); NRBC Per 100 WBC 0 X 10*3/uL (0.00-0.01); Platelet Count 256 X 10*3/uL (140-440); RBC 3.68 X 10*6/uL (4.10-5.20); RDW 12.3 % (11.5-14.5); WBC 8.02 X 10*3/uL (4.50-10.00)
[2025-06-20 15:22] LABS: Basophils # (A) 0.07 X 10*3/uL (0.00-0.10); Basophils % (A) 0.9 %; Eosinophils # (A) 0.29 X 10*3/uL (0.04-0.35); Eosinophils % (A) 3.6 %; Immature Grans, Automated 2.20 %; Lymphocytes # (A) 2.70 X 10*3/uL (0.90-5.00); Lymphocytes % (A) 33.7 %; Monocytes # (A) 0.94 X 10*3/uL (0.20-1.00); Monocytes % (A) 11.7 %; Neutrophils # (A) 3.84 X 10*3/uL (1.80-7.70); Neutrophils % (A) 47.9 %
--- NOTE | 2025-06-21 02:16 | PN ---
PROGRESS NOTE SUBJECTIVE: A 25-year-old [place] female, admitted with acute DVT of the right leg status post removal. OBJECTIVE: CARDIOVASCULAR: S1, S2. LUNGS: Transmitted upper airway sounds. GI: Soft. HEMATOLOGY: Negative Homans. PSYCH: Fair mood and effect. NEUROLOGIC: Alert and oriented x3. ASSESSMENT AND PLAN: Right leg appears to be improved. Prognosis guarded. Ambulate as tolerated. 24-48 hours. Possibly go home tomorrow or the next day. MMODL / IJN: [id number] /
[2025-06-21 02:22] VITALS: PULSE 68
[2025-06-21 07:15] VITALS: BP 93/59; RESP 18; TEMP 97.9
== END 2025-06-21 14:15 | disposition home or self-care (01) | DRG 182 ==
LOC: EC 15:51 → 6NMEDSUR 18:05 → OBSVTOIN 18:06 → 6NMEDSUR 20:07 → 2SICU 06-17 08:24 → 4SSUR 06-19 15:50
PROVIDERS: ADMIT Family Medicine; ATTEND Family Medicine
PROC: 06F Lower Veins, Fragmentation (ICD-10-PCS; 2025-06-17)
PROC: 3E03317 Introduction of Other Thrombolytic into Peripheral Vein, Percutaneous Approach (ICD-10-PCS; 2025-06-17)
PROC: 06F Lower Veins, Fragmentation (ICD-10-PCS; principal; 2025-06-17 07:30)
PROC: B51B1ZZ Fluoroscopy of Right Lower Extremity Veins using Low Osmolar Contrast (ICD-10-PCS; 2025-06-17 07:30)
PROC: 06F Lower Veins, Fragmentation (ICD-10-PCS; 2025-06-17 07:30)
PROC: B5191ZZ Fluoroscopy of Inferior Vena Cava using Low Osmolar Contrast (ICD-10-PCS; 2025-06-18)
PROC: B54BZZ3 Ultrasonography of Right Lower Extremity Veins, Intravascular (ICD-10-PCS; 2025-06-18)
PROC: 06H Lower Veins, Insertion (ICD-10-PCS; 2025-06-18)
PROC: 06H Lower Veins, Insertion (ICD-10-PCS; 2025-06-18)
DX: T82.898A Other specified complication of vascular prosthetic devices, implants and grafts, initial encounter (principal); I82.421 Acute embolism and thrombosis of right iliac vein; I82.220 Acute embolism and thrombosis of inferior vena cava; I82.431 Acute embolism and thrombosis of right popliteal vein; I87.1 Compression of vein; D68.59 Other primary thrombophilia; D72.829 Elevated white blood cell count, unspecified; Y71.1 Therapeutic (nonsurgical) and rehabilitative cardiovascular devices associated with adverse incidents; Z53.20 Procedure and treatment not carried out because of patient's decision for unspecified reasons; Z95.820 Peripheral vascular angioplasty status with implants and grafts; Z79.01 Long term (current) use of anticoagulants; Z97.5 Presence of (intrauterine) contraceptive device; Z86.718 Personal history of other venous thrombosis and embolism
CPT/HCPCS: 36415; 37211; 37214; 37238; 37248; 37252; 74177; 75820; 75825; 76937; 80048; 80053; 83605; 84702; 85025; 85384; 85610; 85730; 96374; 96375; 99285